=== PATIENT | male | born 1975 | race Hispanic/Latino ===

== ENCOUNTER → 2021-02-24 | Day surgery (SDC) | payer OTHER ==
[2021-02-22 15:40] LABS: BLOOD UREA NITROGEN 16 mg/dL (7-26); BUN/CREATININE RATIO 14 (6-25); CALCIUM 8.7 mg/dL (8.4-10.2); CARBON DIOXIDE 28 mmol/L (22-29); CHLORIDE 104 mmol/L (98-107); CREATININE, SERUM 1.14 mg/dL (0.72-1.25); EST GLOMERULAR FILTRATION RATE > 60 ML/MIN (60-); GLUCOSE 135 mg/dL (74-118); SODIUM 141 mmol/L (136-145)
[2021-02-22 15:55] LABS: BASOPHILS % 0.5 % (0.0-1.0); EOSINOPHILS # (AUTO) 0.2 (0.0-0.4); EOSINOPHILS % 1.7 % (0.0-6.0); HEMATOCRIT 45.6 % (38.2-49.6); HEMOGLOBIN 14.6 g/dL (14.0-18.0); LYMPHOCYTES # (AUTO) 1.7 (1.0-3.2); LYMPHOCYTES % 19.5 % (18.0-39.1); MEAN CORPUSCULAR HEMOGLOBIN 28.5 pg (28-32); MEAN CORPUSCULAR VOLUME 88.9 fL (81-99); MONOCYTES # (AUTO) 0.6 (0.2-0.8); MONOCYTES % 7.3 % (4.4-11.3); NEUTROPHILS # (AUTO) 6.1 (2.1-6.9); NEUTROPHILS % 70.7 % (38.7-80.0); PLATELET COUNT 214 x10e3/uL (140-360); RED BLOOD COUNT 5.13 x10e6/uL (4.3-5.7); RED CELL DISTRIBUTION WIDTH 12.9 % (11.7-14.4)
[~2021-02-24] MED LIST: ACETAMINOPHEN 1000 MG/100 ML 100 ML IV ONE; BUPIVACAINE 0.25% 30ML SDV ONE; DEXAMETHASONE SOD PHOS INJ 4 MG/ML VIAL ONE; FENTANYL CITRATE/PF 100MCG/2 ML INJ ONE; GLYCOPYRROLATE INJ 0.2 MG/ML VIAL ONE; HYDROCODONE/APAP 7.5MG-325MG 1 EA TAB ONE; KETOROLAC TROMETHAMINE 30 MG/ML VIAL ONE; LIDOCAINE HCL 2% LOCAL INJ 5 ML SDV VIAL INJ ONE; MIDAZOLAM HCL 2 MG/2 ML VIAL ONE; NEOSTIGMINE 1 MG/ML 10ML VIAL ONE; ONDANSETRON HCL INJ 2MG/ML 2ML 2 MG/ML VIAL ONE; POVIDONE IODINE 0.05% 0.05 % ML PO ONE; PROPOFOL IV EMULSION 10 MG/ML 20 ML VIAL ONE; ROCURONIUM BROMIDE 10 MG/ML 5ML VIAL IV ONE; SEVOFLURANE INHAL SOLN 250 ML PEN BTL ONE
[2021-02-24 11:35] VITALS: BP 100/72
== END | disposition home or self-care (01) ==
LOC: OR 06:44
PROVIDERS: ATTEND Surgery
DX: K42.0 Umbilical hernia with obstruction, without gangrene (principal); R73.03 Prediabetes; Z01.810 Encounter for preprocedural cardiovascular examination; Z01.812 Encounter for preprocedural laboratory examination; Z20.822 Contact with and (suspected) exposure to COVID-19
CPT/HCPCS: 36415; 49587; 80048; 85025; 93005; C1781; J0131; J1100; J1885; J2001; J2250; J2405; J2704; J2710; J3010; U0002

== ENCOUNTER 2021-10-16 19:07 | Inpatient (IN) | payer OTHER ==
[~2021-10-16] VITALS: Ht 170.2 cm; Wt 89.9 kg
[2021-10-16] MEDS ORDERED: SODIUM CHLORIDE 0.9% 1000ML 1,000 ML IV STA (19:31)
[2021-10-16] MEDS ORDERED: ACETAMINOPHEN 325 MG TAB PO STA (19:31)
[2021-10-16] MEDS ORDERED: ONDANSETRON HCL INJ 2MG/ML 2ML 2 MG/ML VIAL IV PRN (19:45)
[2021-10-16 19:56] LABS: BASOPHILS % 0.2 % (0.0-1.0); EOSINOPHILS % 0.1 % (0.0-6.0); HEMATOCRIT 47.2 % (38.2-49.6); HEMOGLOBIN 14.7 g/dL (14.0-18.0); LYMPHOCYTES # (AUTO) 1.8 (1.0-3.2); LYMPHOCYTES % 13.6 % (18.0-39.1); MEAN CORPUSCULAR HEMOGLOBIN 27.8 pg (28-32); MEAN CORPUSCULAR HGB CONC 31.1 g/dL (31-35); MEAN CORPUSCULAR VOLUME 89.2 fL (81-99); MONOCYTES # (AUTO) 1.2 (0.2-0.8); MONOCYTES % 9.4 % (4.4-11.3); NEUTROPHILS # (AUTO) 10.1 (2.1-6.9); NEUTROPHILS % 76.5 % (38.7-80.0); PLATELET COUNT 161 x10e3/uL (140-360); RED BLOOD COUNT 5.29 x10e6/uL (4.3-5.7); RED CELL DISTRIBUTION WIDTH 13.2 % (11.7-14.4)
[2021-10-16 20:03] LABS: CLARITY,URINE SL CLOUDY (CLEAR); COLOR,URINE YELLOW (YELLOW); KETONES,URINE NEGATIVE (NEGATIVE); LEUKOCYTE ESTERASE ,URINE NEGATIVE (NEGATIVE); NITRITE,URINE NEGATIVE (NEGATIVE); PROTEIN,URINE DIPSTICK NEGATIVE (NEGATIVE); URINE UROBILINOGEN 0.2 mg/dL (0.2 - 1)
[2021-10-16 20:15] LABS: ALBUMIN 3.8 g/dL (3.5-5.0); ALBUMIN/GLOBULIN RATIO 1.2 (0.8-2.0); ANION GAP 13.7 mmol/L (8-16); CALCIUM 8.5 mg/dL (8.4-10.2); CREATININE, SERUM 1.16 mg/dL (0.72-1.25); POTASSIUM 3.7 mmol/L (3.5-5.1)
[2021-10-16] MEDS ORDERED: Morphine 4mg Syringe 4 MG/ML INJ IV PRN (20:15)
[2021-10-16 20:18] LABS: EPITHELIAL CELLS,URINE RARE /LPF
[2021-10-16] MEDS: PIPERACILLIN/TAZOBACTAM 3.375 GM in SODIUM CHLORIDE 0.9% 50ML 50 ML IV SCH (20:30)
[2021-10-16 23:30] VITALS: BP 149/91
[2021-10-17] VITALS (8 sets, daily range): BP systolic 90–114; BP diastolic 59–75
[2021-10-17] MEDS: SODIUM CHLORIDE 0.9% 1000ML 1,000 ML IV SCH ×4 (03:45→20:30)
[2021-10-17] MEDS ORDERED: ACETAMINOPHEN 325 MG TAB PO PRN (03:45)
[2021-10-17 05:11] LABS: BASOPHILS % 0.1 % (0.0-1.0); EOSINOPHILS % 0.3 % (0.0-6.0); HEMOGLOBIN 13.1 g/dL (14.0-18.0); LYMPHOCYTES # (AUTO) 0.5 (1.0-3.2); LYMPHOCYTES % 6.8 % (18.0-39.1); MEAN CORPUSCULAR HEMOGLOBIN 27.8 pg (28-32); MEAN CORPUSCULAR HGB CONC 31.2 g/dL (31-35); MEAN CORPUSCULAR VOLUME 89.2 fL (81-99); MONOCYTES # (AUTO) 0.6 (0.2-0.8); MONOCYTES % 8.1 % (4.4-11.3); NEUTROPHILS # (AUTO) 6.2 (2.1-6.9); NEUTROPHILS % 84.4 % (38.7-80.0); PLATELET COUNT 140 x10e3/uL (140-360); RED BLOOD COUNT 4.71 x10e6/uL (4.3-5.7); RED CELL DISTRIBUTION WIDTH 13.2 % (11.7-14.4)
[2021-10-17 05:31] LABS: ALBUMIN 3.2 g/dL (3.5-5.0); ALBUMIN/GLOBULIN RATIO 1.1 (0.8-2.0); ANION GAP 11.7 mmol/L (8-16); CALCIUM 7.8 mg/dL (8.4-10.2); CREATININE, SERUM 1.13 mg/dL (0.72-1.25); POTASSIUM 3.7 mmol/L (3.5-5.1)
[2021-10-17] MEDS: PIPERACILLIN/TAZOBACTAM 3.375 GM in SODIUM CHLORIDE 0.9% 50ML 50 ML IV SCH ×4 (06:10→12:01)
[2021-10-17] MEDS ORDERED: BUPIVACAINE 0.25% 30ML SDV ONE (12:08)
[2021-10-17] MEDS ORDERED: REMDESIVIR 200MG 200 MG in SODIUM CHLORIDE 0.9% 100 ML IV ONE (14:00)
[2021-10-17] MEDS ORDERED: HYDROCODONE/APAP 7.5MG-325MG 1 EA TAB PO PRN (15:30)
[2021-10-17] MEDS ORDERED: HYDROMORPHONE 1MG/1ML INJ IV PRN (15:30)
[2021-10-17] MEDS: ASCORBIC ACID 500 MG TAB PO SCH (16:07)
[2021-10-17] MEDS: ZINC SULFATE 50 MG CAP PO SCH (16:07)
[2021-10-17] MEDS ORDERED: ENOXAPARIN INJ 80 MG/0.8 ML SYR SC SCH (17:00)
[2021-10-17] MEDS ORDERED: ROCURONIUM BROMIDE 10 MG/ML 5ML VIAL IV ONE (18:59)
[2021-10-17] MEDS ORDERED: POVIDONE IODINE 0.05% 0.05 % ML PO ONE (18:59)
[2021-10-17] MEDS ORDERED: EPHEDRINE SULFATE INJ 50 MG/ML VIAL ONE (18:59)
[2021-10-17] MEDS ORDERED: GLYCOPYRROLATE INJ 0.2 MG/ML VIAL ONE (18:59)
[2021-10-17] MEDS ORDERED: DEXAMETHASONE SOD PHOS INJ 4 MG/ML SDV ONE (18:59)
[2021-10-17] MEDS ORDERED: SEVOFLURANE INHAL SOLN 250 ML PEN BTL ONE (18:59)
[2021-10-17] MEDS ORDERED: LIDOCAINE HCL 2% LOCAL INJ 5 ML SDV VIAL INJ ONE (18:59)
[2021-10-17] MEDS ORDERED: ONDANSETRON HCL INJ 2MG/ML 2ML 2 MG/ML VIAL ONE (18:59)
[2021-10-17] MEDS ORDERED: NEOSTIGMINE 1 MG/ML 10ML VIAL ONE (18:59)
[2021-10-17] MEDS ORDERED: PROPOFOL IV EMULSION 10 MG/ML 20 ML VIAL ONE (18:59)
[2021-10-17] MEDS ORDERED: FENTANYL CITRATE/PF 100MCG/2 ML INJ ONE (19:11)
[2021-10-17] MEDS ORDERED: MIDAZOLAM HCL 2 MG/2 ML VIAL ONE (19:11)
[2021-10-18] VITALS: BP 105/68
[2021-10-18] MEDS: SODIUM CHLORIDE 0.9% 1000ML 1,000 ML IV SCH ×2 (03:45→12:36)
[2021-10-18 03:52] VITALS: BP 100/62
[2021-10-18 04:57] LABS: BASOPHILS % 0.1 % (0.0-1.0); HEMATOCRIT 40.3 % (38.2-49.6); HEMOGLOBIN 12.5 g/dL (14.0-18.0); LYMPHOCYTES # (AUTO) 1.3 (1.0-3.2); LYMPHOCYTES % 14.7 % (18.0-39.1); MEAN CORPUSCULAR HEMOGLOBIN 27.8 pg (28-32); MEAN CORPUSCULAR VOLUME 89.8 fL (81-99); MONOCYTES # (AUTO) 0.6 (0.2-0.8); MONOCYTES % 6.3 % (4.4-11.3); NEUTROPHILS # (AUTO) 6.9 (2.1-6.9); NEUTROPHILS % 78.6 % (38.7-80.0); PLATELET COUNT 141 x10e3/uL (140-360); RED BLOOD COUNT 4.49 x10e6/uL (4.3-5.7); RED CELL DISTRIBUTION WIDTH 13.3 % (11.7-14.4)
[2021-10-18 06:10] LABS: ALBUMIN 2.9 g/dL (3.5-5.0); ANION GAP 10.8 mmol/L (8-16); CALCIUM 7.8 mg/dL (8.4-10.2); CREATININE, SERUM 0.95 mg/dL (0.72-1.25); POTASSIUM 4.8 mmol/L (3.5-5.1)
[2021-10-18 07:34] VITALS: BP 104/67
[2021-10-18 08:01] VITALS: BP 104/67
[2021-10-18] MEDS: ZINC SULFATE 50 MG CAP PO SCH (08:44)
[2021-10-18] MEDS: ASCORBIC ACID 500 MG TAB PO SCH (08:44)
[2021-10-18] MEDS ORDERED: CEFTRIAXONE 2 GM in SODIUM CHLORIDE 0.9% 100 ML IV SCH (09:00)
[2021-10-18] MEDS ORDERED: DEXAMETHASONE SOD PHOS 10 MG/1 ML VIAL IV SCH (09:00)
[2021-10-18 11:26] VITALS: BP 102/66
[2021-10-18] MEDS ORDERED: AZITHROMYCIN 250 MG TAB PO SCH (12:00)
[2021-10-18] MEDS ORDERED: REMDESIVIR 100MG 100 MG in SODIUM CHLORIDE 0.9% 100 ML IV SCH (14:00)
[2021-10-18] MEDS ORDERED: ONDANSETRON HCL 4 MG ORAL DISINTEGRATING TAB PO PRN (14:45)
== END 2021-10-18 15:00 | disposition home or self-care (01) | DRG 981 ==
LOC: ER 19:24 → ERHOLD 19:41 → MED/SURG2 23:18 → OBSVTOIN 10-18 10:10
PROVIDERS: ADMIT Family Medicine; ATTEND Family Medicine
PROC: 0DTJ4ZZ Resection of Appendix, Percutaneous Endoscopic Approach (ICD-10-PCS; principal; 2021-10-17 13:30)
PROC: 8E0ZXY6 Isolation (ICD-10-PCS; 2021-10-18)
PROC: XW043E5 Introduction of Remdesivir Anti-infective into Central Vein, Percutaneous Approach, New Technology Group 5 (ICD-10-PCS; 2021-10-18)
DX: U07.1 COVID-19 (principal); J12.82 Pneumonia due to coronavirus disease 2019; K35.80 Unspecified acute appendicitis
CPT/HCPCS: 36415; 80053; 81001; 83518; 83605; 85025; 87040; 87070; 88304; 94799; 96361; 99284; C1766; G0378; J0456; J0696; J1100; J2001; J2250; J2270; J2405; J2543; J2710; J3010; J7030; J7050; U0002